=== PATIENT | male | born 1995 | race Caucasian/White ===

== ENCOUNTER 2017-06-08 11:12 | Emergency (ER) | payer OTHER ==
[~2017-06-08] VITALS: Ht 182.9 cm; Wt 79.4 kg
[2017-06-08] MEDS ORDERED: AMOXICILLIN 50500 MG PO (11:30)
[2017-06-08] MEDS ORDERED: IBUPROFEN 800800 MG PO (11:30)
[2017-06-08] MEDS ORDERED: TRAMADOL 50 MG50 MG PO (11:31)
[2017-06-08 11:40] VITALS: BP 137/86
== END 2017-06-08 11:41 | disposition home or self-care (01) ==
LOC: M.ERS 11:12
DX: K08.89 Other specified disorders of teeth and supporting structures (principal); F17.200 Nicotine dependence, unspecified, uncomplicated